=== PATIENT | male | born 1975 | race Caucasian/White ===

== ENCOUNTER 2022-04-05 05:48 | Day surgery (SDC) | payer OTHER, SELFPAY ==
[2022-04-05] VITALS (10 sets, daily range): BP systolic 133–177; BP diastolic 99–125; PULSE 93–102; RESP 16; TEMP 36.4–37; O2SAT 96–100; BMI 23.8
--- NOTE | 2022-04-05 | COLBX_PTH ---
PATIENT: NEELIMA DE JESUS LOC: EN U#:[id number] AGE/SX: 47/M ROOM: RE04/05/[address]: Dr. Perry Finney MD : 1975 BED: DIS: 04/05/2022 SPEC #: [id number] RECD: 04/05/22 13:18 STATUS: POP DIAZScott #: [id number] NATALIE: 04/05/22 00:[address]: Perry Finney DEPT: SURGICAL PATHOLOGY RECD BY: Forrest Nelson ENTERED: 04/05/22 13:19 SP TYPE: COLON BX OT DR: MD Chavez Suarez MD Tissues: A - Transverse colon B - Sigmoid colon biopsy C - Sigmoid colon biopsy D - Rectum, NOS Procedures: Surgery Specimen Level IV HEADER OPERATION: Colonoscopy with biopsies and polypectomy (MOD) PRE-OP DIAGNOSIS: Screening TISSUE SUBMITTED: A ? Proximal transverse biopsy, B ? Polyp proximal sigmoid, C ? Polyp distal sigmoid, D ? Rectum (2) biopsy MICROSCOPIC DIAGNOSIS A. Proximal transverse colon, biopsy: Fragments of tubular adenoma. B. Polyp proximal sigmoid, biopsy: Tubular adenoma. C. Polyp distal sigmoid, biopsy: Fragments of hyperplastic polyp. D. Rectum (2), biopsy: Fragments of tubular adenoma. Fragments of hyperplastic polyp. SJ:jeremy 04/06/2022 MICROSCOPIC DESCRIPTION Slides are reviewed. GROSS DESCRIPTION A - Received in fixative is one container labeled with the patient's name and designated proximal transverse biopsy. The specimen consists of two irregular fragments of light gaines soft tissue that in aggregate measure 0.6 x 0.3 x 0.1 cm. The specimen is totally submitted in one cassette. B - Received in fixative is one container labeled with the patient's name and designated polyp proximal sigmoid. The specimen consists of one irregular fragment of light gaines soft tissue that measures 0.7 x 0.4 x 0.1 cm. The specimen is totally submitted in one cassette. C - Received in fixative is one container labeled with the patient's name and designated polyp distal sigmoid. The specimen consists of multiple irregular fragments of light gaines soft tissue that in aggregate measure 1 x 0.2 x 0.1 cm. The specimen is totally submitted in one cassette. D - Received in fixative is one container labeled with the patient's name and designated biopsy rectum. The specimen consists of multiple irregular fragments of light gaines soft tissue that in aggregate measure 0.8 x 0.8 x 0.1 cm. The specimen is totally submitted in one cassette. / GLENNA:jeremy 04/05/2022 TC:1 CPT: 66257 x4
--- NOTE | 2022-04-05 05:57 | HP.PCM_ITS ---
History and Physical Date of Admission: 04/05/22 Visit Reasons: CSCOPE & VASECTOMY Allergies No Known Allergies Allergy (Verified 03/15/22 13:44) Medications lorazepam 2 mg tablet 2 mg PO DIRECTED #1 tab 03/15/22 [Rx Confirmed 03/15/22] [facility] Medical History Biceps tendinitis on left Elbow pain Medial epicondylitis of both elbows Surgical History S/P left inguinal hernia repair Family History Mother CAD (coronary artery disease) Hypertension Sister Cancer thyroid Father Ulcer Social History Smoking Status: Never smoker alcohol intake: current alcohol intake frequency: a few times a week HPI HPI HPI: NEELIMA DE JESUS, is a 47 M who presents to the office today for surgical consultation regarding screening colonoscopy and bilateral partial vasectomy. The patient is referred by Dr. Chavez philippe, my surgical consult recommendations will return to him. 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 Significant other is Marjorie ALTAMIRANO General General: No weight change, appetite, fatigue, colon cancer, breast cancer or weakness HEENT HEENT: No difficulty swallowing, eye injury, eye surgery, swollen glands or hoarseness Endo Endocrine: No thyroid disease, diabetes mellitus, thyroid cancer, Hair loss, heat intolerance or cold intolerance Skin Skin: No rash or changing moles Breast Breast: No left breast lump, right breast lump, nipple discharge, breast pain, abnormal mammogram, abnormal US or breast enlargement Musc Musculoskeletal: No back problems, arthritis, rheumatoid arthritis, gout or joint pain Cardio Cardiovascular: No murmur, pacemaker, heart disease, atrial fibrillation, high blood pressure, heart attack, heart stent, palpitations, shortness of breat with exertion or chest pain Psych Psychiatric: No depression, anxiety or hearing voices Resp Respiratory: No shortness of breath, No sleep apnea, No cough, No COPD, No asthma, No emphysema and No wheezing Gastro Gastrointestinal: No abdominal pain, No nausea or vomiting, No diarrhea, No constipation, No blood in stool, No acid reflux, No hemorrhoids, No ulcers, No gallbladder problem and No black,tarry stools Henry Hematologic: No blood thinners, No blood disorders, No bleeding, No anemia and No blood clots Neuro Neurologic: No system reviewed and no additional complaints, except as documented, No as per HPI, No abnormal gait, No abnormal hearing, No abnormal movements, No abnormal speech, No behavioral changes, No burning sensations, No confusion, No convulsions, No disequilibrium, No dizziness, No localized wea kness, No frequent falls, No headache(s), No lack of coordination, No loss of vision, No memory loss, No numbness, No other visual disturbances, No radicular pain, No restless legs, No sensory deficit, No syncope, No tingling, No tremor(s), No weakness and No other Exam Const General: cooperative, comfortable and no acute distress Nutritional Appearance: average body habitus Orientation: awake HENNM Head: normal to inspection Eyes General: appearance normal, both eyes and all related structures Chest Chest palpation & inspection: normal inspection of the chest Resp Effort & Inspection: normal respiratory effort Auscultation: clear to auscultation bilaterally Cardio Rate: regular rate Rhythm: regular rhythm GI Palpation: soft and no hepatosplenomegaly Auscultation: normal bowel sounds Other: Testicles are descended. No testicular mass. Vas deferens easily palpable. Evidence of previous left inguinal hernia repair with solid foundation. No evidence of recurrence. Right groin solid and intact as well Skin General: no rashes or lesions noted Neuro General: patient alert, patient awake and patient oriented x3 Extrem General: no calf tenderness Psych Appearance: grossly normal Assessment and Plan (1) Screening for intestinal cancer: Status: Acute (2) Encounter for sterilization: Status: Acute Plan - Dr. Perry Finney MD: I recommended the patient a screening colonoscopy with possible biopsy or polypectomy as indicated. He has no family history of similar disease. He has had a very remote colonoscopy with no polyps at that time. He is aware of tech nique, benefit, risk, alternatives. We should be able to proceed with routine bowel prep and moderate anesthesia. I have provided the patient written descriptive information and verbal description regarding bilateral partial vasectomy as a means of sterilization. No guarantees of success have been offered. He is aware that this is an office- based procedure. He has been provided prescription for lorazepam. He is aware that he is not permitted to drive after taking that medication. He is aware that a post operative appointment will be made for inspection of the surgical site and then further discussion regarding future specimen submission. He is aware that specimen submission will be required in order to clear him from utilizing other means of control. He has had an opportunity to ask and have questions answered. I did discuss with him my preference for no swimming pool activity for 2 weeks post procedure. With this in mind he may delay until the fall. He will schedule at his discretion. I appreciate the opportunity of assisting with his surgical care Copy: Dr. Chavez Finney M.D., F.A.C.S. I have re-examined the patient. There are no clinical changes since date of exam. Perry Finney M.D., F.A.C.S.
[2022-04-05] MEDS: Lactated Ringers 1,000 ML 15 ML IV (06:16)
[2022-04-05] MEDS: Midazolam 5 MG/ML Syringe (06:40)
[2022-04-05] MEDS: DiphenhydrAMINE 50 MG/ML Syringe (06:43)
--- NOTE | 2022-04-05 07:11 | OP.COLON_ITS ---
Patient Name: Zach Ramirez Procedure Date: 04/05/2022 6:25 AM Date of : 1975 Age: 47 Procedure: Colonoscopy Indications: Screening for colorectal malignant neoplasm Providers: Perry Finney MD Medicines: Midazolam 5 mg IV, Meperidine 100 mg IV, Diphenhydramine 25 mg IV Patient Profile: Last Colonoscopy: none. The patient's first colonoscopy is today. Complications: No immediate complications. Procedure: Pre-Anesthesia Assessment: - Prior to the procedure, a History and Physical was performed, and patient medications and allergies were reviewed. The patient's tolerance of previous anesthesia was also reviewed. The risks and benefits of the procedure and the sedation options and risks were discussed with the patient. All questions were answered, and informed consent was obtained. Prior Anticoagulants: The patient has taken no previous anticoagulant or antiplatelet agents. ASA Grade Assessment: II - A patient with mild systemic disease. After reviewing the risks and benefits, the patient was deemed in satisfactory condition to undergo the procedure. After I obtained informed consent, the scope was passed under direct vision. Throughout the procedure, the patient's blood pressure, pulse, and oxygen saturations were monitored continuously. The Colonoscope was introduced through the anus and advanced to the cecum, identified by appendiceal orifice and ileocecal valve. The colonoscopy was performed without difficulty. The patient tolerated the procedure well. The quality of the bowel preparation was good. The ileocecal valve and the appendiceal orifice were photographed. Moderate Sedation: Moderate (conscious) sedation was personally administered by the endoscopist. The following parameters were monitored: oxygen saturation, heart rate, blood pressure, and response to care. Total physician intraservice time was 15 minutes. Scope In: 6:41:26 AM Scope Withdrawal Time 0 hours 14 minutes 32 seconds Scope Out: 7:03:34 AM Total Procedure Duration Time 0 hours 22 minutes 8 seconds Findings: The digital rectal exam findings include non-thrombosed external hemorrhoids, non-thrombosed internal hemorrhoids and internal hemorrhoids that prolapse with straining, but spontaneously regress to the resting position (Grade II). Pertinent negatives include normal prostate (size, shape, and consistency). A 4 mm polyp was found in the proximal transverse colon. The polyp was sessile. The polyp was removed with a cold biopsy forceps. Resection and retrieval were complete. A 10 mm polyp was found in the proximal sigmoid colon. The polyp was pedunculated. The polyp was removed with a hot snare. Resection and retrieval were complete. A 9 mm polyp was found in the distal sigmoid colon. The polyp was sessile. The polyp was removed with a cold biopsy forceps. Resection and retrieval were complete. Two sessile polyps were found in the rectum. The polyps were 4 to 5 mm in size. These polyps were removed with a cold biopsy forceps. Resection and retrieval were complete. Impression: - Non-thrombosed external hemorrhoids, non-thrombosed internal hemorrhoids and internal hemorrhoids that prolapse with straining, but spontaneously regress to the resting position (Grade II) found on digital rectal exam. - One 4 mm polyp in the proximal transverse colon, removed with a cold biopsy forceps. Resected and retrieved. - One 10 mm polyp in the proximal sigmoid colon, removed with a hot snare. Resected and retrieved. - One 9 mm polyp in the distal sigmoid colon, removed with a cold biopsy forceps. Resected and retrieved. - Two 4 to 5 mm polyps in the rectum, removed with a cold biopsy forceps. Resected and retrieved. Recommendation: - Discharge patient to home. - Resume previous diet. - Continue present medications. - Repeat colonoscopy in 3 years for surveillance based on pathology results. - Telephone my office for pathology results in 1 week. Procedure Code(s): --- Professional --- 33404, Colonoscopy, flexible; with removal of tumor(s), polyp(s), or other lesion(s) by snare technique 17193, 59, Colonoscopy, flexible; with biopsy, single or multiple 93763, 59, Moderate sedation services provided by the same physician or other qualified health primary health care nurse performing the diagnostic or therapeutic service that the sedation supports, requiring the presence of an independent trained observer to assist in the monitoring of the patient's level of consciousness and physiological status; initial 15 minutes of intraservice time, patient age 5 years or older Diagnosis Code(s): --- Professional --- Z12.11, Encounter for screening for malignant neoplasm of colon K64.1, Second degree hemorrhoids K64.4, Residual hemorrhoidal skin tags D12.3, Benign neoplasm of transverse colon (hepatic flexure or splenic flexure) D12.5, Benign neoplasm of sigmoid colon K62.1, Rectal polyp CPT copyright 2017 [employer]. All rights reserved. The codes documented in this report are preliminary and upon medical records supervisor review may be revised to meet current compliance requirements. Perry Finney MD 04/05/2022 7:11:37 AM This report has been signed electronically. Number of Addenda: 0 Note Initiated On: 04/05/2022 6:25 AM
--- NOTE | 2022-04-05 07:11 | OP.CCLET_ITS ---
04/05/2022 Jadiel Steiner Md Re : Colonoscopy procedure for Zach Licea Obdulia This procedure was performed on Tuesday, April 05, 2022. My impressions and recommendations are as follows: Impressions : - Non-thrombosed external hemorrhoids, non-thrombosed internal hemorrhoids and internal hemorrhoids that prolapse with straining, but spontaneously regress to the resting position (Grade II) found on digital rectal exam. - One 4 mm polyp in the proximal transverse colon, removed with a cold biopsy forceps. Resected and retrieved. - One 10 mm polyp in the proximal sigmoid colon, removed with a hot snare. Resected and retrieved. - One 9 mm polyp in the distal sigmoid colon, removed with a cold biopsy forceps. Resected and retrieved. - Two 4 to 5 mm polyps in the rectum, removed with a cold biopsy forceps. Resected and retrieved. Recommendations : - Discharge patient to home. - Resume previous diet. - Continue present medications. - Repeat colonoscopy in 3 years for surveillance based on pathology results. - Telephone my office for pathology results in 1 week. My findings are described in the full procedure note, which is enclosed. If I can be of further assistance, please feel free to contact me at Doctor phone number(s): Work: . Sincerely, Perry Finney MD 04/05/2022 7:11:37 AM This report has been signed electronically.
== END 2022-04-05 07:48 | disposition home or self-care (01) ==
LOC: EN 05:50 → AC 05:50
PROVIDERS: PCP Family Medicine; Referring Provider Family Medicine; Visit Provider Surgery
PROC: 0DJD8ZZ Inspection of Lower Intestinal Tract, Via Natural or Artificial Opening Endoscopic (ICD-10-PCS; CPT 45378; principal; 2022-04-05 06:25)
DX: Z12.11 Encounter for screening for malignant neoplasm of colon (principal); K64.1 Second degree hemorrhoids; K64.4 Residual hemorrhoidal skin tags; D12.5 Benign neoplasm of sigmoid colon; D12.3 Benign neoplasm of transverse colon; D12.7 Benign neoplasm of rectosigmoid junction
CPT/HCPCS: 88305; 99152; 99153

== ENCOUNTER → 2022-05-16 | Outpatient (CLI) | payer OTHER, SELFPAY ==
--- NOTE | 2022-05-16 13:00 | VAS_PTH ---
PATIENT: NEELIMA DE JESUS LOC: [facility] U#:[id number] AGE/SX: 47/M ROOM: RE05/16/[address]: Dr. Perry Finney MD : 1975 BED: DIS: 05/16/2022 SPEC #: [id number] RECD: 05/16/22 16:15 STATUS: POP ELIAS #: [id number] NATALIE: 05/16/22 13:[address]: Perry Finney DEPT: SURGICAL PATHOLOGY RECD BY: Domenico Quezada ENTERED: 05/17/22 06:42 SP TYPE: VAS OTHR DR: Chavez Steiner MD Tissues: A - Vas deferens, NOS B - Vas deferens, NOS Procedures: Surgery Specimen Level II HEADER OPERATION: Bilateral partial vasectomy PRE-OP DIAGNOSIS: Sterilization TISSUE SUBMITTED: A ? Right vas deferens, B ? Left vas deferens MICROSCOPIC DIAGNOSIS A. Right vas deferens, partial vasectomy: Completely transected segment of vas deferens, no pathologic diagnosis. B. Left vas deferens, partial vasectomy: Completely transected segment of vas deferens, no pathologic diagnosis. GLENNA:jeremy 05/18/2022 MICROSCOPIC DESCRIPTION Slides are reviewed. GROSS DESCRIPTION A - Received is one container designated right vas deferens. The specimen consists of a tubular segment of gaines soft tissue measuring 1.2 cm in length and 0.2 cm in diameter. The specimen is sectioned and submitted entirely in one cassette. B - Received is one container designated left vas deferens. The specimen consists of a tubular segment of gaines soft tissue measuring 1.2 cm in length and 0.2 cm in diameter. The specimen is sectioned and submitted entirely in one cassette. / GLENNA:jeremy 05/17/2022 TC:4 [facility]: [id number] x2
== END | disposition home or self-care (01) ==
LOC: LABSPEC 16:28
PROVIDERS: PCP Family Medicine; Visit Provider Surgery
DX: Z30.2 Encounter for sterilization (principal)
CPT/HCPCS: 88302

== ENCOUNTER → 2022-06-30 | Outpatient (CLI) | payer OTHER, SELFPAY ==
[2022-06-30 12:55] LABS: Semen Analysis Post Vas PRELIMINARY PRESENT
[2022-07-01 11:58] LABS: Pathologist Review Reviewed
== END | disposition home or self-care (01) ==
LOC: LABSPEC 11:33
PROVIDERS: PCP Family Medicine; Referring Provider Surgery; Visit Provider Surgery
DX: Z30.2 Encounter for sterilization (principal)
CPT/HCPCS: 89321

== ENCOUNTER → 2022-09-01 | Outpatient (CLI) | payer OTHER, SELFPAY ==
[2022-09-01 12:53] LABS: Semen Analysis Post Vas ABSENT
[2022-09-02 09:37] LABS: Pathologist Review Reviewed
== END | disposition home or self-care (01) ==
LOC: LABSPEC 11:22
PROVIDERS: PCP Family Medicine; Referring Provider Surgery; Visit Provider Surgery
DX: Z30.2 Encounter for sterilization (principal)
CPT/HCPCS: 89321

== ENCOUNTER → 2023-07-12 | Outpatient (CLI) | payer OTHER, SELFPAY ==
[2023-07-12 15:49] LABS: Anion Gap 5 (5-15); BUN 17 mg/dL (7-18); Calcium,Total 9.3 mg/dL (8.5-10.1); Chloride 105 mmol/L (98-107); Cholesterol 233 mg/dL (200); EST Glomerular Filtration Rate 84 mL/min (>60); Est Glom Filt Rate - Afr Amer 102 mL/min (>60); Glucose 95 mg/dL (74-106); High Density Lipoprotein 43 mg/dL; PSA,Total - Annual Screen 1.03 ng/mL (0.00-4.00); Sodium Level 137 mmol/L (136-145); Triglycerides 169 mg/dL; Very Low Density Lipoprotein 34 mg/dL (5-40)
== END | disposition home or self-care (01) ==
LOC: MFPLAB 12:23
PROVIDERS: PCP Family Medicine; Visit Provider Family Medicine
DX: Z12.5 Encounter for screening for malignant neoplasm of prostate (principal); Z13.1 Encounter for screening for diabetes mellitus; Z13.220 Encounter for screening for lipoid disorders
CPT/HCPCS: 36415; 80048; 80061; 84153; G0103

== ENCOUNTER → 2024-08-20 | Outpatient (CLI) | payer OTHER, SELFPAY ==
[2024-08-20 09:44] LABS: PSA,Total - Annual Screen 1.77 ng/mL (0.00-4.00)
== END | disposition home or self-care (01) ==
PROVIDERS: PCP Family Medicine; Referring Provider Nurse Practitioner; Visit Provider Nurse Practitioner
DX: Z12.5 Encounter for screening for malignant neoplasm of prostate (principal)
CPT/HCPCS: 36415; 84153; G0103

== ENCOUNTER 2025-03-11 08:22 | Day surgery (SDC) | payer OTHER, SELFPAY ==
[2025-03-11] VITALS (8 sets, daily range): BP systolic 101–153; BP diastolic 80–107; PULSE 70–90; RESP 16; TEMP 35.8–36.8; O2SAT 95–100; BMI 24.4
[2025-03-11] MEDS: Lactated Ringers 1,000 ML 15 ML IV (08:47)
--- NOTE | 2025-03-11 09:05 | PCM.PRE.AN2 ---
ASA Classification* ASA Classification ASA Classification: 2 Assessment & Plan Anesthesia* Anesthesia Assessment Anesthesia Assessment: Discussed sedation and/or anesthesia options, risks, benefits, and alternatives with patient/parents/legal guardian/POA. Questions invited. The patient/parents/legal guardian/POA seems to understand and agrees to proceed with anesthesia plan. Reviewed the physical assessment, medical history, allergy history and patient home medications list prior to surgery/procedure/anesthetic and documented any changes. Performed airway and anesthesia risk assessments. Anesthesia Type Anesthesia Type: MAC Anesthesia Focused Assessment* Temperature: 98.3 F Pulse Rate: 90 Blood Pressure: 153/107 Respiratory Rate: 16 Pulse Ox: 100 Airway Assessment Mouth opens: >3 cm Mallampati Score: II Focused Labs Anesthesia Preop lab: CBC CHEMISTRY Potassium 4.0 mmol/L (3.5-5.1) 07/12/23 12:25 07/12/23 Sodium 137 mmol/L (136-145) 07/12/23 12:25 07/12/23 BUN 17 mg/dL (7-18) 07/12/23 12:25 07/12/23 Creatinine 1.00 mg/dL (0.70-1.30) 07/12/23 12:25 07/12/23 Glucose 95 mg/dL (74-106) 07/12/23 12:25 07/12/23 COAG Pre-Assessment Diagnosis/Proposed Procedure Planned Operative Procedure(s): Colonoscopy - Open Access Anesthesia History 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 When Was Last Pacemaker Check QUESTION #4 FULL TEXT: You/Your Family Experience fever (hyperthermia) with Anesthesia Last Oral Intake Last Oral intake: Last Oral Intake NPO since 00:00 05/20/25 08:36 Meds taken in AM with sips of No 03/11/25 08:36 water? Meds patient instructed to take am of surgery PONV PONV - charge machine operator: PONV - charge machine operator Female No 03/10/25 11:45 HX of Motion Sickness Yes 03/10/25 11:45 HX of N/V After Surgery No 03/10/25 11:45 Non-Smoker Yes 03/10/25 11:45 Duration of Surgery greater No 03/10/25 11:45 than 60 minutes Number of Risk Factors 2 03/10/25 11:45 PONV Score Moderate Risk 03/10/25 11:45 Height & Weight Height & Weight: Anesthesia: Height & Weight Height 5 ft 9 in 03/11/25 08:36 Weight: 75 kg 03/11/25 08:36 Body Mass Index (BMI) 24.4 03/11/25 08:36 Respiratory Assessment Respiratory Assessment - charge machine operator: Respiratory Tract Infection Hx - charge machine operator Hx Respiratory Tract Infection No 03/10/25 11:45 STOP Sleep Apnea STOP Sleep Apnea - charge machine operator: STOP Sleep Apnea - charge machine operator Hx Hypertension No 03/10/25 11:45 Hx Sleep Apnea No 03/10/25 11:45 CPAP BIPAP Do you snore loudly (louder No 03/10/25 11:45 than talking or can be heard Do you often feel tired/ No 03/10/25 11:45 fatigued/ sleepy during daytime? Has anyone observed you stop No 03/10/25 11:45 breathing during sleep? STOP Results Negative 03/10/25 11:45 QUESTION #5 FULL TEXT : Do you snore loudly (louder than talking or can be heard through closed doors)? 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 Specify any problems Hx of Preganancy in last 3 N/A 03/10/25 11:45 Months Nurse Filling Out Transfusion VCHRISTIN 03/10/25 11:45 & Questions: Date: 03/10/25 03/10/25 11:45 Time: 11:46 03/10/25 11:45 Patient unable to answer at this time (ie. confused, unrespo /Reproduction History /Reproductive History - charge machine operator: /Reproductive Hx- charge machine operator Hx Now Gestational Age (in weeks): EDC: Hx Hx Para Hx Section SAB Active Medications Active Medications: Current Medications Generic Name Dose Route Start Last Admin Trade Name Freq PRN Reason Stop Dose Admin Lactated Ringer's 1,000 mls @ 15 mls/hr 03/11/25 08:30 03/11/25 08:47 IV 15 mls/hr .Q48H RACHEL Administration PFSH Medical History Alcohol use Gastric reflux Non-smoker History of asthma Biceps tendinitis on left Medial epicondylitis of both elbows Elbow pain Home Medications ?Medication ?Instructions ?Recorded ?Last Taken ?Type omeprazole 40 mg capsule,delayed 40 mg PO DAILY 03/10/25 03/10/25 History release Allergy/AdvReac Type Severity Reaction Status Date / Time No Known Allergies Allergy Verified 03/11/25 08:35 Family History Mother CAD (coronary artery disease) Hypertension Sister Cancer thyroid Father Ulcer Surgical History History of esophagogastroduodenoscopy (EGD) History of vasectomy (~04/2022) History of colonoscopy S/P left inguinal hernia repair Social History Smoking Status: Never smoker alcohol intake: current alcohol intake frequency: a few times a week Review of Systems (Anesthesia) ROS Narrative System reviewed and no additional complaints, except as documented.
--- NOTE | 2025-03-11 09:30 | COLBX_PTH ---
PATIENT: NEELIMA DE JESUS LOC: EN U#:[id number] AGE/SX: 50/M ROOM: RE03/11/[address]: Dr. Preet Padilla MD : 1975 BED: DIS: 03/11/2025 SPEC #: [id number] RECD: 03/11/25 12:14 STATUS: POP ELIAS #: [id number] NATALIE: 03/11/25 09:[address]: Preet Padilla DEPT: SURGICAL PATHOLOGY RECD BY: Christopher Lowe ENTERED: 03/11/25 13:18 SP TYPE: COLON BX OTHR DR: Dr. Chavez Steiner MD Tissues: A - Ascending colon B - Sigmoid colon biopsy Procedures: Surgery Specimen Level IV HEADER OPERATION: Colonoscopy with polypectomy with hot snare PRE-OP DIAGNOSIS: History of colon polyps TISSUE SUBMITTED: A- Ascending colon polyp, B- Sigmoid colon polyp MICROSCOPIC DIAGNOSIS A. Ascending colon, polyp, biopsy: Tubular adenoma. B. Sigmoid colon, polyp, biopsy: Tubular adenoma. MICROSCOPIC DESCRIPTION Slides are reviewed. GROSS DESCRIPTION A. Received in formalin in a container labeled with the patient's name, date of , and ascending colon polyp are multiple small gaines-pink fragments of mucosal tissue measuring 0.5 x 0.5 x 0.3 cm in aggregate. Submitted in toto in A1. B. Received in formalin in a container labeled with the patient's name, date of , and sigmoid colon polyp are 2 gaines-pink fragments of mucosal tissue each measuring 0.5 x 0.4 x 0.3 cm. Submitted in toto in B1. [facility] 03-11-2025 CPT:75536h9
--- NOTE | 2025-03-11 09:36 | PCM.HP.STD ---
HPI - General General Date of Admission: 03/11/25 Date of Service: 03/11/25 Chief Complaint: History of colon polyps HPI Narrative NEELIMA DE JESUS, is a 50 M who presents for surveillance colonoscopy. Last colonoscopy was about 3 years ago. At that time polyps were removed. He was asked to follow-up again in about 3 years. He denies any GI symptoms or problems currently [facility] Medical History Alcohol use Gastric reflux Non-smoker History of asthma Biceps tendinitis on left Medial epicondylitis of both elbows Elbow pain Home Medications ?Medication ?Instructions ?Recorded ?Last Taken ?Type omeprazole 40 mg capsule,delayed 40 mg PO DAILY 03/10/25 03/10/25 History release Allergy/AdvReac Type Severity Reaction Status Date / Time No Known Allergies Allergy Verified 03/11/25 08:35 Family History Mother CAD (coronary artery disease) Hypertension Sister Cancer thyroid Father Ulcer Surgical History History of esophagogastroduodenoscopy (EGD) History of vasectomy (~04/2022) History of colonoscopy S/P left inguinal hernia repair Social History Smoking Status: Never smoker alcohol intake: current alcohol intake frequency: a few times a week Vital Signs Vital Signs Vital Signs: 03/11/25 08:36 03/11/25 08:36 03/11/25 09:05 Temperature 98.3 F 98.3 F Temperature Source Temporal Pulse Rate 90 90 Respiratory Rate 16 16 Respiratory Pattern Normal Blood Pressure 153/107 H 153/107 H Blood Pressure Mean 122 Blood Pressure Source Monitor Blood Pressure Position Semi-Fowlers Blood Pressure Location Left Arm Pulse Ox 100 100 Oxygen Delivery Method Room Air Weight Weight: 165 lb 5.547 oz Body Mass Index (BMI) 24.4 Physical Exam Const alert, oriented x3 and no apparent distress Assessment & Plan Assessment/Plan (1) Screening for intestinal cancer: PLAN: Plan The patient is a 50-year-old male with a history of colon polyps. He presents today for colonoscopy. Last colonoscopy was 3 years ago. We discussed the details of the planned procedure and he wishes to proceed. This will begin momentarily. Charges/Coding Visit Charges Inpatient E&M: 93431 Init Hosp L2
--- NOTE | 2025-03-11 10:28 | OP.CCLET_ITS ---
03/11/2025 Jadiel Steiner [address] [place] [address] Re : Colonoscopy procedure for Zach Ramirez Dear Dr. Steiner This procedure was performed on Tuesday, March 11, 2025. My impressions and recommendations are as follows: Impressions : - One 8 mm polyp in the sigmoid colon, removed with a hot snare. Resected and retrieved. - Two 2 to 4 mm polyps in the ascending colon, removed with a cold biopsy forceps. Resected and retrieved. - The examination was otherwise normal. Recommendations : - Discharge patient to home (ambulatory). - High fiber diet. - Await pathology results. - Repeat colonoscopy in 3 - 5 years for surveillance. - Return to my office PRN. - Continue present medications. My findings are described in the full procedure note, which is enclosed. If I can be of further assistance, please feel free to contact me at . Sincerely, Preet Padilla MD 03/11/2025 10:27:49 AM This report has been signed electronically.
--- NOTE | 2025-03-11 10:28 | OP.COLON_ITS ---
Patient Name: Zach Ramirez Procedure Date: 03/11/2025 9:37 AM Date of : 1975 Age: 50 Procedure: Colonoscopy Indications: High risk colon cancer surveillance: Personal history of colonic polyps Providers: Preet Padilla MD Referring MD: Jadiel Steiner Medicines: Monitored Anesthesia Care Patient Profile: Refer to note in patient chart for documentation of history and physical. Last Colonoscopy: 3 years ago. Complications: No immediate complications. Estimated blood loss: Minimal. Procedure: Pre-Anesthesia Assessment: - Prior to the procedure, a History and Physical was performed, and patient medications and allergies were reviewed. The patient's tolerance of previous anesthesia was also reviewed. The risks and benefits of the procedure and the sedation options and risks were discussed with the patient. All questions were answered, and informed consent was obtained. Prior Anticoagulants: The patient has taken no anticoagulant or antiplatelet agents. ASA Grade Assessment: II - A patient with mild systemic disease. After reviewing the risks and benefits, the patient was deemed in satisfactory condition to undergo the procedure. After I obtained informed consent, the scope was passed under direct vision. Throughout the procedure, the patient's blood pressure, pulse, and oxygen saturations were monitored continuously. The adult colonoscope was introduced through the anus and advanced to the cecum, identified by appendiceal orifice and ileocecal valve. The ileocecal valve, appendiceal orifice, and rectum were photographed. The entire colon was well visualized. The colonoscopy was performed without difficulty. The patient tolerated the procedure well. The quality of the bowel preparation was adequate. Moderate Sedation: See the other procedure note for documentation of moderate sedation with intraservice time. Scope In: 9:44:33 AM Scope Withdrawal Time 0 hours 26 minutes 29 seconds Scope Out: 10:23:19 AM Total Procedure Duration Time 0 hours 38 minutes 46 seconds Findings: The perianal and digital rectal examinations were normal. An 8 mm polyp was found in the sigmoid colon. The polyp was pedunculated. The polyp was removed with a hot snare. Resection and retrieval were complete. Verification of patient identification for the specimen was done by the nurse using the patient's name, date and medical record number. Estimated blood loss was minimal. Two semi-sessile polyps were found in the ascending colon. The polyps were 2 to 4 mm in size. These polyps were removed with a cold biopsy forceps. Resection and retrieval were complete. Verification of patient identification for the specimen was done by the nurse using the patient's name, date and medical record number. Estimated blood loss was minimal. The exam was otherwise without abnormality. Impression: - One 8 mm polyp in the sigmoid colon, removed with a hot snare. Resected and retrieved. - Two 2 to 4 mm polyps in the ascending colon, removed with a cold biopsy forceps. Resected and retrieved. - The examination was otherwise normal. Recommendation: - Discharge patient to home (ambulatory). - High fiber diet. - Await pathology results. - Repeat colonoscopy in 3 - 5 years for surveillance. - Return to my office PRN. - Continue present medications. Procedure Code(s): --- Professional --- 88107, Colonoscopy, flexible; with removal of tumor(s), polyp(s), or other lesion(s) by snare technique 33267, 59, Colonoscopy, flexible; with biopsy, single or multiple Diagnosis Code(s): --- Professional --- Z86.010, Personal history of colonic polyps D12.2, Benign neoplasm of ascending colon D12.5, Benign neoplasm of sigmoid colon CPT copyright 2021 [employer]. All rights reserved. The codes documented in this report are preliminary and upon apparatus lineman review may be revised to meet current compliance requirements. Preet Padilla MD 03/11/2025 10:27:49 AM This report has been signed electronically. Number of Addenda: 0 Note Initiated On: 03/11/2025 9:37 AM
--- NOTE | 2025-03-11 10:30 | PCM.POST.ANE ---
Anesthesia: Postop Eval I Current Vital Signs Temperature: 97.1 F Pulse Rate: 77 Blood Pressure: 112/80 Respiratory Rate: 16 Pulse Ox: 95 Oxygen Delivery Method: Room Air Assessment Airway patent: Yes Spontaneous unlabored respirations: Yes Mental status: Asleep nausea: No Vomiting: No Anesthesia Complication: No Fluid Hydration Crystalloid volume administer (ml): 900 Total IV fluid infused: 900 Progress Note Anesthesia document: Postop Eval 1 completed: Yes
--- NOTE | 2025-03-11 11:04 | PCM.POSTANE2 ---
Anesthesia Postop Eval I Sum Postop Eval Completion status Anesthesia document: Postop Eval 1 completed: Yes Anesthesia Postop Eval I Summary Anesthesia Postop Eval I Summary: Anesthesia Postop Eval I: Assessment Summary Airway patent Yes 03/11/25 10:31 [email or web address] Spontaneous unlabored Yes 03/11/25 10:31 [email or web address] respirations Mental status Asleep 03/11/25 10:31 [email or web address] nausea No 03/11/25 10:31 [email or web address] Vomiting No 03/11/25 10:31 [email or web address] Anesthesia Postop Eval I: Fluid Summary Crystalloid volume administer 900 03/11/25 10:31 [email or web address] (ml) Colloids volume administered ( ml) Blood Product volume administered (ml) Total IV fluid infused 900 03/11/25 10:31 [email or web address] Anesthesia Postop Eval I: Summary Notes Anesthesia Complication No 03/11/25 10:31 [email or web address] Anesthesia Complication Comment: Post-operative progress note Anesthesia: Postop Eval II Evaluation Mental status: Awake Pain Level: 0 nausea: No Vomiting: No
== END 2025-03-11 11:13 | disposition home or self-care (01) ==
LOC: EN 08:22 → AC 08:24
PROVIDERS: PCP Family Medicine; Referring Provider Family Medicine; Visit Provider Surgery
PROC: 0DJD8ZZ Inspection of Lower Intestinal Tract, Via Natural or Artificial Opening Endoscopic (ICD-10-PCS; CPT 45378; principal; 2025-03-11 09:25)
DX: Z12.11 Encounter for screening for malignant neoplasm of colon (principal); D12.2 Benign neoplasm of ascending colon; D12.5 Benign neoplasm of sigmoid colon; Z86.0100 Personal history of colon polyps, unspecified
CPT/HCPCS: 45380; 45385; 88305; J2405